=== PATIENT | female | born 1960 | race Caucasian/White ===

== ENCOUNTER 2017-11-01 12:55 | Emergency (ER) | payer OTHER ==
[2017-11-01 13:08] VITALS: BP 168/86; RESP 16; TEMP 96.2
[2017-11-01] MEDS ORDERED: ALBUTEROL NEB SOL 2.5MG/3ML 1 VIAL SOL NEB ONE (13:20)
[2017-11-01] MEDS ORDERED: ALBUTEROL/IPRATROPIUM 1 VIAL SOL INH ONE (13:22)
[2017-11-01] MEDS ORDERED: ALBUTEROL/IPRATROPIUM 1 VIAL SOL ONE (13:27)
[2017-11-01 13:39] VITALS: PULSE 95; O2SAT 97
== END 2017-11-01 13:55 | disposition home or self-care (01) | DRG 203 ==
LOC: ED 12:55
DX: J45.41 Moderate persistent asthma with (acute) exacerbation (principal); Z72.0 Tobacco use
CPT/HCPCS: 71020; 99282; J7620

== ENCOUNTER 2018-04-08 10:17 | Day surgery (SDC) | payer OTHER ==
[2018-04-08] MEDS ORDERED: DEXAMETHASONE SOD PHOS PF 10 MG/ML SOL IJ ONE (11:15)
[2018-04-08] MEDS ORDERED: BUPIVACAINE HCL 0.25% MPF 30 ML SOL INFIL ONE (11:15)
[2018-04-08] MEDS ORDERED: SODIUM CHLORIDE 0.9% FLUSH 10 ML SOL IV ONE ×4 (11:23→11:33)
[2018-04-08] MEDS: MIDAZOLAM 2 MG/2 ML SOL ONE ×2 (11:23→11:25)
[2018-04-08] MEDS: FENTANYL 100MCG/2ML SOL ONE ×2 (11:23→11:33)
[2018-04-08 11:44] VITALS: PULSE 62
[2018-04-08 12:00] VITALS: BP 116/61; RESP 18; TEMP 97.4; O2SAT 94
== END 2018-04-08 12:32 | disposition home or self-care (01) | DRG 552 ==
LOC: SURG 10:17
PROVIDERS: ATTEND Nurse Anesthetist, Certified Registered
DX: M54.2 Cervicalgia (principal); M54.12 Radiculopathy, cervical region
CPT/HCPCS: J2250; J3010; J1100

== ENCOUNTER 2018-05-04 10:01 | Inpatient (IN) | payer OTHER ==
[2018-05-04] MEDS ORDERED: ALBUTEROL NEB SOL 2.5MG/3ML 1 VIAL SOL NEB PRN (10:52)
[2018-05-04] MEDS ORDERED: NICOTINE 21 MG PATCH TD SCH (11:00)
[2018-05-04] MEDS ORDERED: ALBUTEROL/IPRATROPIUM 1 VIAL SOL ONE (11:18)
[2018-05-04] MEDS ORDERED: LORAZEPAM 2 MG/ML SOL IV PRN (11:19)
[2018-05-04] MEDS ORDERED: AZITHROMYCIN 250 MG TAB PO ONE (11:21)
[2018-05-04] MEDS: ALBUTEROL/IPRATROPIUM 1 VIAL SOL INH SCH ×3 (11:21→23:21)
[2018-05-04] MEDS ORDERED: SOLUMEDROL 125 MG/2 ML 125 MG/2 ML PDS IV ONE (11:30)
[2018-05-04] MEDS: SODIUM CHLORIDE 0.9% FLUSH 10 ML SOL IV SCH ×2 (11:49→17:45)
[2018-05-04] MEDS: SOLUMEDROL 125 MG/2 ML 125 MG/2 ML PDS IV SCH ×2 (17:19→23:21)
[2018-05-04] MEDS ORDERED: CLOBETASOL PROPIONATE APPL TOP PRN (17:31)
[2018-05-04] MEDS ORDERED: GABAPENTIN 300 MG CAP PO SCH (21:00)
[2018-05-04] MEDS: Non-Formulary Medication MISC (Budesonide/Formoterol 160/4.5 2 PUFF) IH SCH (21:43)
[2018-05-05] MEDS: ALBUTEROL/IPRATROPIUM 1 VIAL SOL INH SCH (05:40)
[2018-05-05] MEDS: SODIUM CHLORIDE 0.9% FLUSH 10 ML SOL IV SCH (05:42)
[2018-05-05] MEDS: SOLUMEDROL 125 MG/2 ML 125 MG/2 ML PDS IV SCH (05:42)
[2018-05-05 08:12] VITALS: BP 152/73
[2018-05-05] MEDS ORDERED: SERTRALINE HYDROCHLORIDE 50 MG TAB PO SCH ×2 (09:00→21:00)
[2018-05-05] MEDS: Non-Formulary Medication MISC (Budesonide/Formoterol 160/4.5 2 PUFF) IH SCH (09:11)
[2018-05-05 10:35] VITALS: PULSE 94; RESP 16; TEMP 98; O2SAT 90
== END 2018-05-05 09:55 | disposition home or self-care (01) | DRG 203 ==
LOC: ACUTE CARE 10:01
PROVIDERS: ADMIT Family Medicine; ATTEND Nurse Practitioner Family
DX: J45.901 Unspecified asthma with (acute) exacerbation (principal); R06.02 Shortness of breath
CPT/HCPCS: 94150; 94640; 94664; 99238; J2060; J2930; J7613; A9270-GY